=== PATIENT | male | born 1945 | race Caucasian/White ===

== ENCOUNTER 2018-10-06 22:45 | Emergency (ER) | payer MEDICARE ==
[~2018-10-06] VITALS: Ht 180.3 cm; Wt 97.1 kg
[~2018-10-06 22:45] MED LIST: ALLOPURINOL300 MG PO; ASPIR 8181 MG PO; ASPIRIN325 MG PO; COMBIVENT INH14.7 GM INH; COREG25 MG PO; EFFER-K 10 MEQ10 MEQ PO; LASIX40 MG PO; LIPITOR20 MG PO; LISINOPRIL40 MG PO; METFORMIN HCL500 MG PO; MULTI VITAMIN1 EACH PO; TOPROL XL50 MG PO; VITAMIN C1000 M2 PO; ZOCOR40 MG PO
--- OUTSIDE RECORDS SUMMARY | 2018-10-07 01:26 | XMS ---
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 Jessica has no Care Guidelines for this patient. [place] VISIT COUNT (12 MO.) [address] TOTAL 3 NOTE: Visits indicate total known visits. ED/C VISIT TRACKING (12 MO.) 10/07/2018 00:00 [facility] TYPE: Emergency DIAGNOSES: - Pain, unspecified 10/06/2018 22:45 [facility] TYPE: Emergency COMPLAINT: - SHORTNESS OF BREATH/WEAKNESS 09/04/2018 17:47 [facility] TYPE: Emergency COMPLAINT: - FALL DIAGNOSES: - Disorder of kidney and ureter, unspecified - Pneumonia, unspecified organism - Other specified abnormal findings of blood chemistry - Pleurodynia - Hyperkalemia - Chronic obstructive pulmonary disease, unspecified INPATIENT VISIT TRACKING (12 MO.) 09/04/2018 23:23 [facility] DIAGNOSES: - Essential (primary) hypertension - Unspecified fall, subsequent encounter - Respiratory Failure [email or web address]
--- NOTE | 2018-10-07 11:57 | EKG ---
[facility] [address] [facility] [place], [place] [address] Signed Sinus tachycardia Otherwise normal ECG When compared with ECG of 04-SEP-2018 18:34, No significant change was found Confirmed by MARIAMA MIJARES MD ([id number]) on 10/07/2018 11:57:43 AM Electronically Signed By: MARIAMA MIJARES MD 10/07/18 1157 PATIENT NAME: PEÑALENCHO SANCHEZADILIA Woods Electrocardiogram DATE OF : 49 PHYSICIAN: MARIAMA MIJARES MD REPORT #: [id number] REPORT IS CONFIDENTIAL AND NOT TO BE RELEASED WITHOUT AUTHORIZATION
== END 2018-10-07 03:08 | disposition short-term general hospital (02) ==
LOC: ED 22:45
DX: J18.9 Pneumonia, unspecified organism (principal); R79.89 Other specified abnormal findings of blood chemistry; J44.9 Chronic obstructive pulmonary disease, unspecified; E11.9 Type 2 diabetes mellitus without complications; I11.0 Hypertensive heart disease with heart failure; I50.9 Heart failure, unspecified; F17.200 Nicotine dependence, unspecified, uncomplicated; Z88.1 Allergy status to other antibiotic agents; Z88.2 Allergy status to sulfonamides; Z79.82 Long term (current) use of aspirin; Z79.899 Other long term (current) drug therapy
CPT/HCPCS: 71045; 80053; 83605; 83735; 83880; 84484; 85025; 87040; 93005; 93010; 94640; 96361; 96365; 96375; 99285-25; J1956; J2930; J7030

== ENCOUNTER 2018-10-15 12:29 | Emergency (ER) | payer MEDICARE ==
[~2018-10-15] VITALS: Ht 180.3 cm; Wt 97.1 kg
--- OUTSIDE RECORDS SUMMARY | 2018-10-15 12:34 | XMS ---
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 Jessica has no Care Guidelines for this patient. Care History Medical/Surgical 10/08/2018 [facility] - PATIENT PCP WAS DR NOWAK- PLEASE REFER PATIENT TO [facility] TO ESTABLISH CARE. - IF PATIENT IS SEEN IN THE ED DURING BUSINESS HOURS DURING THE WEEK PLEASE CONTACT [facility] [phone]. E.D. VISIT COUNT (12 MO.) [address] TOTAL 4 NOTE: Visits indicate total known visits. 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 - Shortness of breath - Nicotine dependence, unspecified, uncomplicated - Other snf (current) drug therapy - Hypertensive heart disease with heart failure - Heart failure, unspecified - Chronic obstructive pulmonary disease, unspecified - Type 2 diabetes mellitus without complications - Allergy status to other antibiotic agents status - Allergy status to sulfonamides status 09/04/2018 17:47 [facility] [place] TYPE: Emergency COMPLAINT: - FALL DIAGNOSES: - Disorder of kidney and ureter, unspecified - Pneumonia, unspecified organism - Other specified abnormal findings of blood chemistry - Pleurodynia - Hyperkalemia - Chronic obstructive pulmonary disease, unspecified INPATIENT VISIT TRACKING (12 MO.) [facility]07[facility]2018 [facility]: [facility] DIAGNOSES: - Pain, unspecified - Type 2 diabetes mellitus with diabetic chronic kidney disease - Essential (primary) hypertension - Pneumonia, unspecified organism - Chronic kidney disease, stage 3 (moderate) - Chronic obstructive pulmonary disease with (acute) exacerbation 09/04/2018 23:23 [facility] [place] [facility] TYPE: General Medicine DIAGNOSES: - Essential (primary) hypertension - Unspecified fall, subsequent encounter - Respiratory Failure [email or web address]
--- NOTE | 2018-10-15 18:38 | EKG ---
[facility] [address] [place] [address] Signed Poor data quality, interpretation may be adversely affected Atrial fibrillation with rapid ventricular response with premature ventricular or aberrantly conducted complexes Rightward axis Low voltage QRS Cannot rule out Anteroseptal infarct , age undetermined Abnormal ECG When compared with ECG of 06-OCT-2018 22:52, Significant changes have occurred Confirmed by ELVIA SALOMON MD ([id number]) on 10/15/2018 6:37:52 PM Electronically Signed By: ELVIA SALOMON MD 10/15/18 1838 PATIENT NAME: GURU PEÑA Electrocardiogram DATE OF : 49 PHYSICIAN: ELVIA SALOMON MD REPORT #: [id number] REPORT IS CONFIDENTIAL AND NOT TO BE RELEASED WITHOUT AUTHORIZATION
== END 2018-10-15 16:40 | disposition short-term general hospital (02) ==
LOC: ED 12:29
DX: A41.9 Sepsis, unspecified organism (principal); I21.4 Non-ST elevation (NSTEMI) myocardial infarction; I48.91 Unspecified atrial fibrillation; J18.9 Pneumonia, unspecified organism; J44.9 Chronic obstructive pulmonary disease, unspecified; E11.9 Type 2 diabetes mellitus without complications; I11.0 Hypertensive heart disease with heart failure; I50.9 Heart failure, unspecified; Z87.891 Personal history of nicotine dependence; Z88.1 Allergy status to other antibiotic agents; Z88.2 Allergy status to sulfonamides; Z79.82 Long term (current) use of aspirin; Z79.899 Other long term (current) drug therapy
CPT/HCPCS: 36600; 71045; 80053; 81001; 82803; 83605; 84484; 85025; 87070; 87205; 93005; 93010; 94640; 96361; 96365; 96367; 96372; 96375; 96376; 99285-25; J0282; J1650; J2543; J7030; J7060

== ENCOUNTER 2019-03-18 19:25 | Emergency (ER) | payer MEDICARE ==
[~2019-03-18] VITALS: Ht 180.3 cm; Wt 97.1 kg
--- OUTSIDE RECORDS SUMMARY | 2019-03-18 19:28 | XMS ---
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 Care History Medical/Surgical 10/08/2018 [facility] - PATIENT PCP WAS DR NOWAK- PLEASE REFER PATIENT TO [facility] TO ESTABLISH CARE. - IF PATIENT IS SEEN IN THE ED DURING BUSINESS HOURS DURING THE WEEK PLEASE CONTACT [facility] [phone]. E.D. VISIT COUNT (12 MO.) [address] [place] [address] [facility] TOTAL 8 NOTE: Visits indicate total known visits. ED/UCC VISIT TRACKING (12 MO.) 03/18/2019 19:25 [facility] [place] TYPE: Emergency COMPLAINT: - SOB 12/01/2018 07:19 [facility] DIAGNOSES: - ALTERED MENTAL STATUS 11/11/2018 08:57 [facility] TYPE: Emergency DIAGNOSES: - SHORTNESS OF BREATH - Pneumonia, unspecified organism - Chronic obstructive pulmonary disease, unspecified 10/24/2018 17:38 [facility] [place] TYPE: Emergency DIAGNOSES: - Chronic obstructive pulmonary disease with (acute) exacerbation - SOB 10/15/2018 12:29 [facility] [place] TYPE: Emergency COMPLAINT: - WEAKNESS DIAGNOSES: - Sepsis, unspecified organism - Personal history of nicotine dependence - custodial (current) use of aspirin - Allergy status to sulfonamides status - Heart failure, unspecified - 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 - Shortness of breath - Chronic obstructive pulmonary disease, unspecified - Unspecified atrial fibrillation - Non-ST elevation (NSTEMI) myocardial infarction - Allergy status to other antibiotic agents status - Pneumonia, unspecified organism - Type 2 diabetes mellitus without complications - Hypertensive heart disease with heart failure 10/07/2018 04:12 [facility] TYPE: Emergency DIAGNOSES: - Pneumonia, unspecified organism - Pain, unspecified 10/06/2018 22:45 [facility] [place] TYPE: Emergency COMPLAINT: - SHORTNESS OF BREATH/WEAKNESS DIAGNOSES: - Pneumonia, unspecified organism - Other specified abnormal findings of blood chemistry - security tester (current) use of aspirin - Shortness of [...] disease, unspecified INPATIENT VISIT TRACKING (12 MO.) 12/02/2018 13:46 [facility] [place] TYPE: General Medicine DIAGNOSES: - Respiratory Failure 12/01/2018 07:19 [facility] [employer] [place] TYPE: Medical Surgical DIAGNOSES: - ALTERED MENTAL STATUS - Acute bronchitis, unspecified 11/11/2018 08:57 [facility] [place] TYPE: Medical Surgical DIAGNOSES: - Acute and chronic respiratory failure with hypoxia - Pneumonia, unspecified organism - Chronic systolic (congestive) heart failure - Chronic obstructive pulmonary disease with (acute) exacerbation - Chronic obstructive pulmonary disease, unspecified - Acute and chronic respiratory failure with hypercapnia 10/24/2018 17:38 [facility] [place] TYPE: Medical Surgical DIAGNOSES: - Chronic obstructive pulmonary disease with (acute) exacerbation 10/15/2018 18:41 [facility] TYPE: Medical Surgical COMPLAINT: - A FIB WITH RVR, PNEUMONIA, SEPSIS DIAGNOSES: 0. Pneumonia, unspecified organism 1. Unspecified atrial fibrillation 2. Myocardial infarction type 2 3. Hypertensive heart and chronic kidney disease with heart failure and stage 1 through stage 4 chronic kidney disease, or unspecified chronic kidney disease 4. Chronic respiratory failure with hypoxia 5. Chronic diastolic (congestive) heart failure 6. Acute kidney failure, unspecified 7. Anemia in other chronic diseases classified elsewhere 8. Type 2 diabetes mellitus with diabetic chronic kidney disease 9. Chronic kidney disease, stage 3 (moderate) 10. Other disorders of phosphorus metabolism 11. Personal history of pneumonia (recurrent) 10/07/2018 04:12 [facility] TYPE: General Medicine DIAGNOSES: - Pain, unspecified - Type 2 diabetes mellitus with diabetic chronic kidney disease - Essential (primary) hypertension - Pneumonia, unspecified organism - Chronic kidney disease, stage 3 (moderate) - Chronic obstructive pulmonary disease with (acute) exacerbation 09/04/2018 23:23 [facility] TYPE: General Medicine DIAGNOSES: - Essential (primary) hypertension - Unspecified fall, subsequent encounter - Respiratory Failure [email or web address]
--- NOTE | 2019-03-19 08:10 | EKG ---
[facility] [address] [facility] [place] [address] Signed Sinus tachycardia Nonspecific ST abnormality Abnormal ECG When compared with ECG of 15-OCT-2018 12:55, Sinus rhythm has replaced Atrial fibrillation Vent. rate has decreased BY 83 BPM Minimal criteria for Anteroseptal infarct are no longer present ST no longer depressed in Inferior leads ST less depressed in Lateral leads T wave inversion no longer evident in Anterior leads Confirmed by MARIAMA MIJARES MD ([id number]) on 03/19/2019 8:10:30 AM Electronically Signed By: MARIAMA MIJARES MD 03/19/19 0810 PATIENT NAME: GURU PEÑA Electrocardiogram DATE OF : 49 PHYSICIAN: MARIAMA MIJARES MD REPORT #: [id number] REPORT IS CONFIDENTIAL AND NOT TO BE RELEASED WITHOUT AUTHORIZATION
== END 2019-03-18 22:12 | disposition short-term general hospital (02) ==
LOC: ED 19:25
DX: J96.00 Acute respiratory failure, unspecified whether with hypoxia or hypercapnia (principal); J44.9 Chronic obstructive pulmonary disease, unspecified; E11.9 Type 2 diabetes mellitus without complications; I11.0 Hypertensive heart disease with heart failure; I50.9 Heart failure, unspecified; F17.200 Nicotine dependence, unspecified, uncomplicated; Z88.1 Allergy status to other antibiotic agents; Z88.2 Allergy status to sulfonamides; Z79.899 Other long term (current) drug therapy
CPT/HCPCS: 31500; 31720; 36600; 51702; 71045; 80053; 82803; 83735; 83880; 84484; 85025; 93005; 93010; 94002; 94640; 94660; 99285-25; J0330; J1940; J2250; J2704; J2930; J7030; J7060